=== PATIENT | female | born 1975 | race Caucasian/White ===

== ENCOUNTER 2018-02-26 09:54 | Outpatient (CLI) | payer OTHER | END 2018-02-26 09:55 | disposition home or self-care (01) | LOC: BICMAMMO 09:54 | PROVIDERS: ATTEND Family Medicine | DX: Z12.31 Encounter for screening mammogram for malignant neoplasm of breast (principal); Z80.3 Family history of malignant neoplasm of breast | CPT/HCPCS: 77063; 77067 ==

== ENCOUNTER 2019-03-24 10:13 | Outpatient (CLI) | payer OTHER ==
--- NOTE | 2019-03-24 10:54 | MMO ---
Bilateral MAMMO Bilat Screen [facility]. CLINICAL HISTORY: Patient is 43 years old and is seen for screening. The patient has the following family history of breast cancer: mother, at age 66. The patient has no personal history of cancer. VIEWS: The views performed were: bilateral craniocaudal with tomosynthesis and bilateral mediolateral oblique with tomosynthesis. FILMS COMPARED: The present examination has been compared to prior imaging studies performed at [facility] on 10/09/2013, 12/28/2014, 01/03/2016, 01/10/2017 and 02/26/2018. MAMMOGRAM FINDINGS: There are scattered fibroglandular densities. There are no suspicious masses, suspicious calcifications, or new areas of architectural distortion. IMPRESSION: THERE IS NO MAMMOGRAPHIC EVIDENCE OF MALIGNANCY. A ROUTINE FOLLOW-UP MAMMOGRAM IN 1 YEAR IS RECOMMENDED. THE RESULTS OF THIS EXAM WERE SENT TO THE PATIENT. ACR BI-RADS Category 1 - Negative MAMMOGRAPHY NOTE: 1. A negative mammogram report should not delay a biopsy if a dominant of clinically suspicious mass is present. 2. Approximately 10% to 15% of breast cancers are not detected by mammography. 3. Adenosis and dense breasts may obscure an underlying neoplasm.
== END 2019-03-24 10:14 | disposition home or self-care (01) ==
LOC: BICMAMMO 10:13
PROVIDERS: ATTEND Obstetrics & Gynecology
DX: Z12.31 Encounter for screening mammogram for malignant neoplasm of breast (principal); Z80.3 Family history of malignant neoplasm of breast
CPT/HCPCS: 77063; 77067

== ENCOUNTER 2020-11-17 09:43 | Outpatient (CLI) | payer OTHER ==
--- NOTE | 2020-11-17 10:46 | MMO ---
Bilateral MAMMO Bilat Screen [facility]. CLINICAL HISTORY: Patient is 45 years old and is seen for screening. The patient has the following family history of breast cancer: mother, at age 66. The patient has no personal history of cancer. VIEWS: The views performed were: bilateral craniocaudal with tomosynthesis and bilateral mediolateral oblique with tomosynthesis. FILMS COMPARED: The present examination has been compared to prior imaging studies performed at [facility] on 01/03/2016, 01/10/2017, 02/26/2018 and 03/24/2019. This study has been interpreted with the assistance of computer-aided detection. MAMMOGRAM FINDINGS: There are scattered fibroglandular densities. There are no suspicious masses, suspicious calcifications, or new areas of architectural distortion. IMPRESSION: THERE IS NO MAMMOGRAPHIC EVIDENCE OF MALIGNANCY. A ROUTINE FOLLOW-UP MAMMOGRAM IN 1 YEAR IS RECOMMENDED. THE RESULTS OF THIS EXAM WERE SENT TO THE PATIENT. ACR BI-RADS Category 1 - Negative MAMMOGRAPHY NOTE: 1. A negative mammogram report should not delay a biopsy if a dominant of clinically suspicious mass is present. 2. Approximately 10% to 15% of breast cancers are not detected by mammography. 3. Adenosis and dense breasts may obscure an underlying neoplasm. Reported by: AR DOUGHERTY MD Electonically Signed: [id number]
== END 2020-11-17 09:44 | disposition home or self-care (01) ==
LOC: BICMAMMO 09:43
PROVIDERS: ATTEND Family Medicine
DX: Z12.31 Encounter for screening mammogram for malignant neoplasm of breast (principal); Z80.3 Family history of malignant neoplasm of breast
CPT/HCPCS: 77063; 77067

== ENCOUNTER 2021-11-14 11:20 | Day surgery (SDC) | payer OTHER ==
[~2021-11-14 11:20] MED LIST: EPINEPHrine 0.3 MG in Ophthalmic Irrigation Solution 500 ML IRR SCH
[2021-11-14 12:32] LABS: SARS-CoV-2 NAA Rapid Test Not Detected (NotDetected)
[2021-11-14] MEDS ORDERED: Cyclopentolate 1% Opth Drop 2 ML BOT ONE (12:45)
[2021-11-14] MEDS ORDERED: Phenylephrine 2.5% Ophth Soln 5 ML BOT ONE (12:45)
[2021-11-14] MEDS ORDERED: Fentanyl 100 MCG/2 ML VIAL ONE (14:52)
[2021-11-14] MEDS ORDERED: Midazolam HCl 2 mg/2 ml Vial ONE (14:52)
[2021-11-14] MEDS ORDERED: CEFAZOLIN 1 GM VIAL ONE (15:01)
[2021-11-14] MEDS ORDERED: Triamcinolone 40 MG/ML VIAL ONE (15:01)
[2021-11-14] MEDS ORDERED: Lidocaine 1% PF 5 ML VIAL ONE (15:01)
[2021-11-14] MEDS ORDERED: Bupivacaine PF 0.75% SDV 10 ML ONE (15:01)
[2021-11-14] MEDS ORDERED: PROPOFOL 200 MG/20 ML VIAL ONE (15:01)
[2021-11-14] MEDS ORDERED: Maxitrol 0.1% Opth Oint 3.5 GM TUBE ONE (15:01)
[2021-11-14] MEDS ORDERED: Lidocaine 4% PF 5 ML AMP ONE (15:01)
== END 2021-11-14 16:41 | disposition home or self-care (01) ==
LOC: SDC 11:20
PROVIDERS: ATTEND Ophthalmology Retina Specialist
PROC: 08T43ZZ Resection of Right Vitreous, Percutaneous Approach (ICD-10-PCS; principal; 2021-11-14)
DX: H33.021 Retinal detachment with multiple breaks, right eye (principal)
CPT/HCPCS: 67025; J0171; J0690; J2250; J2704; J3010; J3301; J3490; U0002

== ENCOUNTER 2022-04-25 08:02 | Outpatient (CLI) | payer OTHER | END 2022-04-25 08:03 | disposition home or self-care (01) | LOC: BICMAMMO 08:02 | PROVIDERS: ATTEND Obstetrics & Gynecology | DX: Z12.31 Encounter for screening mammogram for malignant neoplasm of breast (principal); Z80.3 Family history of malignant neoplasm of breast | CPT/HCPCS: 77063; 77067 ==

== ENCOUNTER 2024-09-04 10:03 | Outpatient (CLI) | payer OTHER | END 2024-09-04 10:04 | disposition home or self-care (01) | LOC: SCSRAD 10:03 | PROVIDERS: ATTEND Family Medicine | DX: S99.911A Unspecified injury of right ankle, initial encounter (principal); S82.831A Other fracture of upper and lower end of right fibula, initial encounter for closed fracture ==